=== PATIENT | male | born 1980 | race Caucasian/White ===

== ENCOUNTER 2021-04-16 15:20 | Emergency (ER) | payer SELFPAY ==
[2021-04-16 15:51] VITALS: BP 165/110; PULSE 88; RESP 16; TEMP 36.5; O2SAT 99; BMI 23.1
--- NOTE | 2021-04-16 16:11 | XRR_ITS ---
PROCEDURE INFORMATION: Exam: XR Left Hand Exam date and time: 04/16/2021 4:11 PM Age: 40 years old Clinical indication: Pain; Hand; Left; Additional info: Possible fb in finger TECHNIQUE: Imaging protocol: XR Left hand. Views: 3 or more views. COMPARISON: No relevant prior studies available. FINDINGS: Bones/joints: Normal. Soft tissues: Normal. XR/XR hand LT min 3V* [id number] IMPRESSION: No acute findings. Radiation Dose CTDIVOL = (mGy): DLP = (mGy-cm)
--- NOTE | 2021-04-16 20:27 | W.ED.WOUNDLC ---
HPI - Wound/Laceration General: Chief Complaint: Wound/Laceration Stated Complaint: Metal in Left hand/finger Time Seen by Provider: 04/16/21 20:26 History of Present Illness: HPI narrative: Patient reports getting stuck by a wire to his left middle finger 2 or 3 days ago. Patient now reports tenderness and swelling to the distal part of the finger. Patient is alert and oriented. Patient has good range of motion of the finger. Patient appears well. Patient appears no acute distress. Review of Systems General: Reports: 10 or more systems reviewed and unremarkable except in HPI and below Skin/Breast: Reports: other (Redness and swelling noted to the distal middle finger of the left hand.) Physical Exam Const: COMMON NORMALS: no acute distress and patient oriented x3 GENERAL APPEARANCE: cooperative HENMT: COMMON NORMALS: normocephalic HEAD & SCALP: normal to inspection and normocephalic Eye: GENERAL EYE: appearance normal, both eyes and all related structures Neck/C-Spine: COMMON NORMALS: full ROM Chest: COMMONS NORMALS: normal inspection of the chest Resp: COMMON NORMALS: normal respiratory effort EFFORT & INSPECTION: Yes able to speak in complete sentences Cardio: COMMON NORMALS: regular rate and regular rhythm RATE: regular rate RHYTHM: regular rhythm GI: COMMON NORMALS: non-tender Extremity: COMMON NORMALS: normal to inspection Neuro: COMMON NORMALS: patient oriented x3 and moves all extremities Psych: COMMON NORMALS: mental status grossly normal and cooperative Skin: NARRATIVE SKIN EXAM: Redness and induration is noted to the nailbed of the left middle finger. Patient has good range of motion. No signs of abscess is noted at this time. Course Vital Signs: Vital signs: Vital Signs Temperature 97.7 F 04/16/21 15:51 Pulse Rate 88 04/16/21 15:51 Respiratory Rate 16 04/16/21 15:51 Blood Pressure 165/110 04/16/21 15:51 Pulse Oximetry 99 04/16/21 15:51 MDM - Wound/Laceration MDM Narrative: Medical decision making narrative: 40-year-old male patient comes in with redness and swelling to the distal left finger. On exam patient has good range of motion of the finger. Distal cap refill is intact. Sensation is intact. There is swelling and induration to the nailbed of the left middle finger. No foreign body is noted. Differential diagnosis includes not limited to retained foreign body, fracture, paronychia. X-ray noted no foreign body or fractures. Believe the patient probably has a paronychia. We will treat with Augmentin 1 tablet twice a day for 7 days and encourage warm water soaks. Review of the record noted no recent narcotic prescriptions. Patient was given 5 tablets of hydrocodone acetaminophen prescription. Patient was recommended to follow-up with primary care or return to the ER for worsening symptoms. Discharge Plan Discharge Patient Disposition: Home Clinical Impression: Paronychia of finger of left hand Condition: Stable Prescriptions: New Augmentin 875-125 mg tablet 1 tab PO BID Qty: 14 RF: 0 hydrocodone-acetaminophen 5-325 mg tablet 1 tab PO Q8H PRN (Reason: pain) Qty: 5 RF: 0 Discharge Orders: Discharge ED (Routine); Ordered 04/16/21 Ordered By: Tate Suazo Discharge Diet: Usual diet Discharge Activity: Increase activity as tolerated Patient Instructions: Paronychia (ED), Opioid Safety Activity Restrictions/Additional Instructions: Activity as tolerated. Use warm water soaks to the hand for comfort and treatment of nail infection. Take antibiotics twice a day for 7 days. Use acetaminophen and ibuprofen for pain. Follow-up with primary care for further instruction. Stand Alone Forms: Work/School Release Coding Level of Care Code ED [employer]
[2021-04-16] MEDS: amoxicillin-clav 875-125 mg Tablet 1 TAB PO (20:44)
[2021-04-16] MEDS: HYDROcodone-acetaminophen 5-325 mg Tablet 1 TAB PO (20:44)
[2021-04-16] MEDS: tetanus-dipt-pertussis 0.5 mL SDV IM (20:44)
[2021-04-16 20:55] VITALS: BP 165/99; PULSE 84; RESP 16; O2SAT 97
== END 2021-04-16 20:56 | disposition home or self-care (01) ==
PROVIDERS: Emergency Provider Nurse Practitioner Family
DX: L03.012 Cellulitis of left finger (principal); Z23 Encounter for immunization
CPT/HCPCS: 73130; 90471; 90715; 99283

== ENCOUNTER → 2024-01-29 16:40 | Outpatient (BNVA) | payer OTHER, SELFPAY | DX: R73.09 Other abnormal glucose (principal) | CPT/HCPCS: 82962 ==